=== PATIENT | female | born 1975 | race Caucasian/White ===

== ENCOUNTER 2017-07-22 07:05 | Day surgery (SDC) | payer BC ==
[~2017-07-22] VITALS: Ht 154.9 cm; Wt 74.8 kg
[~2017-07-22 07:05] MED LIST: CEFAZOLIN SOD 1 GM/ ISO 50 ML PREMIX IV ONE
[2017-07-22] MEDS ORDERED: ONDANSETRON HCL 4 MG/2 ML VIAL IVP PRN (08:45)
[2017-07-22] MEDS ORDERED: KETOROLAC TROMETHAMINE 30 MG VIAL IVP PRN (08:45)
[2017-07-22] MEDS ORDERED: fentaNYL CITRATE/PF 100 MCG/2 ML AMP IVP PRN ×2 (08:45)
[2017-07-22] MEDS ORDERED: SEVOFLURANE 15 MIN GAS INH ONE (09:10)
[2017-07-22] MEDS ORDERED: 0.45% NACL 1,000 ML BAG IV ONE (09:10)
[2017-07-22] MEDS ORDERED: fentaNYL CITRATE/PF 100 MCG/2 ML AMP IVP ONE (09:10)
[2017-07-22] MEDS ORDERED: MIDAZOLAM HCL 5 MG/5 ML VIAL IVP ONE (09:10)
[2017-07-22] MEDS ORDERED: BUPIVACAINE /PF 0.25% 30 ML VIAL INJ ONE ×2 (09:10→09:38)
[2017-07-22] MEDS ORDERED: PROPOFOL 200MG/ 20ML VIAL (DIPRIVAN) IV ONE (09:10)
[2017-07-22] MEDS ORDERED: D5/0.45 NS 1,000 ML IV SCH (10:16)
[2017-07-22] MEDS ORDERED: HYDROcodone/ACETAMIN 5-325 MG TAB (NORCO/ VICODIN) PO PRN ×2 (10:30→11:45)
[2017-07-22] MEDS ORDERED: HYDROcodone/ACETAMIN 5-325 MG TAB (NORCO/ VICODIN) ONE (11:17)
[2017-07-22 11:24] VITALS: BP_SYST 118
[2017-07-22] MEDS ORDERED: HYDROmorphone 2 MG/ML VIAL IVP PRN (11:45)
== END 2017-07-22 12:45 | disposition home or self-care (01) ==
LOC: SDS 07:05 → SMU 07:05 → SDS 12:45
PROVIDERS: ATTEND Colon & Rectal Surgery
DX: K40.90 Unilateral inguinal hernia, without obstruction or gangrene, not specified as recurrent (principal); Z98.890 Other specified postprocedural states; Z68.30 Body mass index [BMI] 30.0-30.9, adult; Z83.3 Family history of diabetes mellitus; E11.9 Type 2 diabetes mellitus without complications; Z90.710 Acquired absence of both cervix and uterus
CPT/HCPCS: 49505; C1781; J0690; J2250; J2704; J3010; J3490; J7120